=== PATIENT | female | born 1925 | race Caucasian/White ===

== ENCOUNTER → 2016-12-03 18:47 | Outpatient (CLI) | payer MEDICARE ==
[~2016-12-03 18:47] MED LIST: ASCORBIC ACID500 MG PO; LEVOXYL100 MCG PO; NORVASC2.5 MG PO; NORVASC5 MG PO; OXYBUTYNIN CHLOR5 MG PO; VITAMIN A10000 UNIT PO; VITAMIN B COMPL1 TAB PO; VITAMIN D31000 UNIT PO; VITAMIN E100 UNIT PO
[2016-12-10 11:57] VITALS: BMI 23.4
== END | disposition home or self-care (01) ==
LOC: D.LABREF 18:47
DX: R50.9 Fever, unspecified (principal)

== ENCOUNTER 2016-12-09 13:27 | Outpatient (CLI) | payer MEDICARE ==
[~2016-12-09] VITALS: Ht 167.6 cm; Wt 67.3 kg
[2016-12-09 15:26] VITALS: BP 143/75; Ht 167.6 cm; Wt 67.3 kg
[2016-12-09] MEDS ORDERED: OXYBUTYNIN CHLOR5 MG PO ×2 (15:30)
[2016-12-09] MEDS ORDERED: NORVASC5 MG PO (15:31)
--- NOTE | 2016-12-09 16:31 | NUR ---
1600-RADIOLOGIST CONFIRMS PROPER PLACEMENT OF PICC. FRIEND NOTIFIED FOR TRANSPORTATION. 1620-LEFT WITH FRIEND, DID NOT SIGN HER DISCHARGE PAPER.
[2016-12-10] MEDS ORDERED: NORVASC2.5 MG PO (04:09)
[2016-12-10] MEDS ORDERED: LEVOXYL100 MCG PO (04:13)
[2016-12-10] MEDS ORDERED: VITAMIN A10000 UNIT PO (04:14)
[2016-12-10] MEDS ORDERED: VITAMIN B COMPL1 TAB PO (04:14)
[2016-12-10] MEDS ORDERED: VITAMIN E100 UNIT PO (04:15)
[2016-12-10] MEDS ORDERED: ASCORBIC ACID500 MG PO (04:15)
[2016-12-10] MEDS ORDERED: VITAMIN D31000 UNIT PO (04:15)
== END 2016-12-09 16:20 | disposition home or self-care (01) ==
LOC: D.OPS 13:27
DX: N39.0 Urinary tract infection, site not specified (principal)

== ENCOUNTER 2016-12-09 22:15 | Inpatient (IN) | payer MEDICARE ==
[~2016-12-09] VITALS: Ht 167.6 cm; Wt 65.8 kg
[~2016-12-09 22:15] MED LIST changes: -ASCORBIC ACID500 MG PO; -LEVOXYL100 MCG PO; -NORVASC2.5 MG PO; -VITAMIN A10000 UNIT PO; -VITAMIN B COMPL1 TAB PO; -VITAMIN D31000 UNIT PO; -VITAMIN E100 UNIT PO
[2016-12-09 23:22] LABS: BASOPHILS 0.2 % (0.0-2.0); EOSINOPHILS 0.2 % (0-7); HEMATOCRIT 38.8 % (36.0-48.0); HEMOGLOBIN 12.9 g/dL (12-16); IMMATURE GRANULOCYTES 0.5 % (0-5); LYMPHOCYTES 11.7 % (15-50); MCH 29.6 pg (26.0-34.0); MCHC 33.2 g/dL (31.0-37.0); MEAN PLATELET VOLUME 9.1 fL (7.4-10.4); MONOCYTES 8.3 % (2-11); NEUTROPHILS 79.1 % (40-80); PLATELET COUNT 376 10x3/uL (130-400); RBC 4.36 10x6/uL (4.00-5.40); RDW 13.7 % (11.5-14.5); WBC 12.6 10x3/uL (4.8-10.8)
[2016-12-09 23:27] LABS: APPEARANCE CLEAR (CLEAR); BILIRUBIN NEGATIVE (NEGATIVE); COLOR YELLOW (YELLOW); GLUCOSE NEGATIVE (NEGATIVE); KETONE NEGATIVE (NEGATIVE); LEUKOCYTE ESTERASE NEGATIVE (NEGATIVE); NITRITE NEGATIVE (NEGATIVE); PROTEIN NEGATIVE (NEGATIVE); UROBILINOGEN NORMAL (NORMAL)
[2016-12-09 23:34] LABS: UDS - AMPHET NEGATIVE QUAL (NEGATIVE); UDS - BARB NEGATIVE QUAL (NEGATIVE); UDS - BENZO NEGATIVE QUAL (NEGATIVE); UDS - COCAINE NEGATIVE QUAL (NEGATIVE); UDS - METH NEGATIVE QUAL (NEGATIVE); UDS - OPIATE NEGATIVE QUAL (NEGATIVE); UDS - PCP NEGATIVE QUAL (NEGATIVE); UDS - THC NEGATIVE QUAL (NEGATIVE)
[2016-12-09 23:39] LABS: ALBUMIN 3.4 g/dL (3.4-5.0); BILIRUBIN - TOTAL 0.27 mg/dL (0.2-1.3); CALCIUM 9.9 mg/dL (8.5-10.1); CARBON DIOXIDE 24.9 mmol/L (21.0-32.0); CREATININE - SERUM 1.8 mg/dL (0.6-1.3); POTASSIUM - SERUM 4.9 mmol/L (3.5-5.1)
--- NOTE | 2016-12-10 03:40 | NUR ---
RECIEVED PT FROM ER VIA STRETCHER, ASSESSMENT COMPLETED ALONG WITH HISTORY AND MED REC, NO SS OF ACUTE DISTRESS NOTED, ORIENTED TO ROOM AND CALL LIGHT, DENIES PAIN OR NEEDS AT THIS TIME, SR'S UP, CL IN REACH, WILL MONITOR
[2016-12-10 03:50] VITALS: BP 135/72; BMI 23.4
[2016-12-10] MEDS ORDERED: NORVASC2.5 MG PO (04:09)
[2016-12-10] MEDS ORDERED: LEVOXYL100 MCG PO (04:13)
[2016-12-10] MEDS ORDERED: VITAMIN B COMPL1 TAB PO (04:14)
[2016-12-10] MEDS ORDERED: VITAMIN A10000 UNIT PO (04:14)
[2016-12-10] MEDS ORDERED: VITAMIN D31000 UNIT PO (04:15)
[2016-12-10] MEDS ORDERED: VITAMIN E100 UNIT PO (04:15)
[2016-12-10] MEDS ORDERED: ASCORBIC ACID500 MG PO (04:15)
--- NOTE | 2016-12-10 07:32 | NUR ---
PT ASSESSMENT COMPLETE AWAKE AND ALERT ORINENTED X 3 LUNGS CLEAR BIALTERALLY. HEART RATE REGULAR NOTED TO HAVE "WHOOSHING" SOUND MURMUR. PPP X 4 NO ACUTE DISTRESS NOTED. SIDE RAILS UP X 2 CALL LIGHT IN REACH.
--- NOTE | 2016-12-10 08:00 | NUR ---
PATIENT IN LOW KENNY POSITION RESTING WITH EYES CLOSED. RESPIRATIONS EVEN AND UNLABORED. SIDE RAILS UP X2. BED IN LOW POSITION. CALL LIGHT IN REACH.
[2016-12-10 08:35] VITALS: BP 153/71
--- NOTE | 2016-12-10 10:41 | NUR ---
NO ACUTE DISTRESS NTOED VOICES ALL NEEDS TO STAFF WITH NO DIFFICULTY NOTED CALL LIGHT INREACH SIDE RAILS UP X [address] OF HEAD TODAY.
[2016-12-10 11:57] VITALS: Ht 167.6 cm; Wt 65.8 kg
[2016-12-10 13:05] VITALS: BP 166/79
--- NOTE | 2016-12-10 15:06 | NUR ---
PT AWAKE AND ALERT SITTING UP ON SIDE OF BED WITH NO DISTRESS NTOED VOICES ALL NEEDS TO STAFF CALL LIGHT IN REACH SIDE RAILS UP X 2
--- NOTE | 2016-12-10 15:49 | NUR ---
Patient Name: ANAM PATRCIIA Admission Status: ER Accout number: [id number] Admission Date: 12-10-2016 : 1925 Admission Diagnosis: Attending: MARYCARMEN Current LOS: 1 Anticipated DC Date: 12-13-2016 Planned Disposition: Home Primary Insurance: [facility] Discharge Planning Comments: CM MET WITH PATIENT REGARDING D/C NEEDS AND PLANS. PATIENT STATED SHE LIVES ALONE AND HAS NO STEPS OR STAIRS AT HER HOME. PATIENT STATED SHE IS INDEPENDENT WITH HER CARE AND HAS A WALKER (OUT IN THE [place]) IF NEEDED. PATIENT STATED HER PCP IS DR. CARVAJAL AND PHARMACY IS [facility]. PATIENT DENIED HOME HEALTH OR ANY OTHER NEEDS FOR D/C AT THIS TIME. CM WILL CONTINUE TO FOLLOW PATIENT WITH D/C NEEDS AND PLANS. PCP DR. ALENA CARRINGTON [id number] GILBERT STOLL ([facility]) [phone] LIVES IN [place] Section Chief: Rosamaria Amina Is the patient Alert and Oriented? Yes 0 * How many steps to enter\exit or inside your home? 0 0 * PCP DR. CARVAJAL 0 * Pharmacy [facility] 0 * Preadmission Environment Home Alone 0 * ADLs Independent 0 * Equipment Walker 0 * List name and contact numbers for known caregivers / representatives who currently or will assist patient after discharge: GILBERT STOLL ([facility]) [phone] 0 * Community resources currently utilized None 0 * Additional services required to return to the preadmission environment? Yes 0 * Can the patient safely return to the preadmission environment? Yes 0 * Has this patient been hospitalized within the prior 30 days at any hospital? No 0 Grand Total: 0
[2016-12-10 17:41] VITALS: BP 145/73
--- NOTE | 2016-12-10 19:13 | NUR ---
PATIENT RESTING IN BED, TALKING ON THE PHONE. NO VISIBLE SIGNS OF DISTRESS. BED IN LOWEST POSITION AND CALL LIGHT WITHIN REACH.
[2016-12-10 20:00] VITALS: BP 121/62
[2016-12-11] VITALS: BP 126/54
[2016-12-11 04:00] VITALS: BP 130/62
[2016-12-11 04:35] LABS: BASOPHILS 0.3 % (0.0-2.0); EOSINOPHILS 2.3 % (0-7); HEMATOCRIT 39.2 % (36.0-48.0); HEMOGLOBIN 12.6 g/dL (12-16); IMMATURE GRANULOCYTES 0.3 % (0-5); LYMPHOCYTES 27.5 % (15-50); MCHC 32.1 g/dL (31.0-37.0); MCV 90.3 fL (80.0-100.0); MEAN PLATELET VOLUME 9.4 fL (7.4-10.4); MONOCYTES 11.5 % (2-11); NEUTROPHILS 58.1 % (40-80); PLATELET COUNT 374 10x3/uL (130-400); RBC 4.34 10x6/uL (4.00-5.40); WBC 10.1 10x3/uL (4.8-10.8)
[2016-12-11 05:06] LABS: ALBUMIN 3.1 g/dL (3.4-5.0); ANION GAP 13.1 mmol/L (8-16); BILIRUBIN - TOTAL 0.38 mg/dL (0.2-1.3); C-REACTIVE PROTEIN 0.7 mg/dL (0.0-0.9); CALCIUM 9.2 mg/dL (8.5-10.1); CARBON DIOXIDE 23.5 mmol/L (21.0-32.0); CREATININE - SERUM 1.5 mg/dL (0.6-1.3); MAGNESIUM - SERUM 2.2 mg/dL (1.8-2.4); PHOSPHOROUS 3.2 mg/dL (2.5-4.9); POTASSIUM - SERUM 4.6 mmol/L (3.5-5.1); PROTEIN - SERUM 7.6 g/dL (6.4-8.2)
[2016-12-11 05:55] LABS: ERYTHROCYTE SEDIMENTATION RATE 44 mm/hr (0-42)
[2016-12-11 08:20] VITALS: BP 149/70
[2016-12-11 12:28] VITALS: BP 142/58
[2016-12-11 15:47] VITALS: BP 148/52
--- NOTE | 2016-12-11 19:52 | NUR ---
BROUGHT PATIENT ICE PER HER REQUEST. PATIENT DENIES OTHER NEEDS AT THIS TIME. BED IN LOWEST POSITION AND CALL LIGHT WITHIN REACH. ENCOURAGED PATIENT TO CALL IF SHE HAS OTHER NEEDS.
[2016-12-11 20:00] VITALS: BP 129/55
[2016-12-12] VITALS: BP 157/71
[2016-12-12 04:00] VITALS: BP 144/64
[2016-12-12 04:45] LABS: BASOPHILS 0.6 % (0.0-2.0); EOSINOPHILS 3.2 % (0-7); HEMATOCRIT 34.9 % (36.0-48.0); HEMOGLOBIN 11.3 g/dL (12-16); IMMATURE GRANULOCYTES 0.4 % (0-5); LYMPHOCYTES 32.2 % (15-50); MCHC 32.4 g/dL (31.0-37.0); MCV 89.5 fL (80.0-100.0); MEAN PLATELET VOLUME 9.2 fL (7.4-10.4); MONOCYTES 10.9 % (2-11); NEUTROPHILS 52.7 % (40-80); PLATELET COUNT 360 10x3/uL (130-400); WBC 9.5 10x3/uL (4.8-10.8)
[2016-12-12 05:03] LABS: ALBUMIN 2.7 g/dL (3.4-5.0); ANION GAP 15.7 mmol/L (8-16); BILIRUBIN - TOTAL 0.25 mg/dL (0.2-1.3); CALCIUM 8.4 mg/dL (8.5-10.1); CARBON DIOXIDE 19.4 mmol/L (21.0-32.0); POTASSIUM - SERUM 4.1 mmol/L (3.5-5.1); PROTEIN - SERUM 6.8 g/dL (6.4-8.2)
[2016-12-12 05:06] LABS: CREATININE - SERUM 1.1 mg/dL (0.6-1.3)
--- NOTE | 2016-12-12 08:03 | NUR ---
PT ASSESSMENT AWAKE AND ALERT ORIENTED X 3 LUNGS CLAER BILAT HAS NOTED MURMUR WHOOSHING SOUND. BSA X 4 QUADS. MOBILE PER SELF UP AD CAMERON. DENEIS PAIN OR DISCOMFORT OBEYS ALL COMMANDS. CALL LIGHT IN REACH SIDE RAILS UP X 2
[2016-12-12 08:15] VITALS: BP 144/91
--- NOTE | 2016-12-12 09:00 | NUR ---
PATIENT IS AWAKE, ALERT AND ORIENTED X'S 4. RESPIRATIONS ARE EVEN AND UNLABORED ON ROOM AIR. NO SIGNS OF DISTRESS NOTED. PATIENT DENIES NEEDS.
--- NOTE | 2016-12-12 12:23 | NUR ---
NUTRITION MONITORING & EVAL PT TOLERATING REG DIET. 75% INTAKE BREAKFAST. CURRENTLY EATING LUNCH. WILL CONTINUE TO HONOR FOOD PREFERENCES, MONITOR PT PROGRESS. RD FOLLOWING
--- NOTE | 2016-12-12 12:23 | NUR ---
PT PULLED PIV OUT WILL RESITE PER ORDER
[2016-12-12 12:31] VITALS: BP 154/81
--- NOTE | 2016-12-12 13:00 | NUR ---
PIV RESITED TO RIGHT WRIST 20 GA X 1 STICK. TOLERATED WELL.
[2016-12-12 16:02] VITALS: BP 139/80
--- NOTE | 2016-12-12 18:09 | NUR ---
PT SON AT BEDSIDE VISITING. NO DISTRESS NOTED VOICES ALL NEEDS TO STAFF
--- NOTE | 2016-12-12 19:30 | NUR ---
PT RECEIVED LAYING IN BED WATCHING TELEVISION. PT ALERT AND ORIENTED X3. BREATH SOUNDS CLEAR BILATERALLY. RESPIRATIONS ARE EVEN AND UNLABORED. BOWEL SOUNDS ACTIVE X4. ABD SOFT AND NONTENDER UPON PALPATION. HAND HAIRSPRING STUDDER EQUAL. PT IS UP AD CAMERON. IV NOTED TO RIGHT WRIST, NS @ 75, NOTED TO BE PATENT. PT DENIES PAIN AT THIS TIME. CALL LIGHT AND H20 IN REACH. SIDE RAILS UP X2. BED IN LOW POSITION.
[2016-12-12 20:00] VITALS: BP 126/59
--- NOTE | 2016-12-12 21:30 | NUR ---
PT UP IN BED WATCHING TELEVISION. RESPIRATIONS ARE EVEN AND UNLABORED. NO S/S OF DISTRESS NOTED. PT DENIES PAIN OR NEEDS AT THIS TIME. CALL LIGHT AND H2O IN REACH. SIDE RAILS UP X2. BED IN LOW POSITION.
--- NOTE | 2016-12-12 23:30 | NUR ---
PT RESTING IN BED WITH EYES CLOSED. NO S/S OF DISTRESS NOTED. RESPIRATIONS EVEN AND UNLABORED. PT AROUSES TO VERBAL STIMULI. DENIES PAIN OR NEEDS AT THIS TIME. CALL LIGHT AND H2O IN PT REACH. SIDE RAILS UP X2. BED IN LOW POSITION.
[2016-12-13] VITALS: BP 131/64
--- NOTE | 2016-12-13 01:30 | NUR ---
PT RESTING IN BED WITH EYES CLOSED. NO S/S OF DISTRESS NOTED. RESP EVEN AND UNLABORED. CALL LIGHT AND H2O IN PT REACH.
--- NOTE | 2016-12-13 03:30 | NUR ---
PT RESTING IN BED WITH EYES CLOSED. NO S/S OF DISTRESS NOTED. RESPIRATIONS EVEN AND UNLABORED. ABLE TO VOICE NEEDS, NO COMPLAINTS OR NEEDS VOICED AT THIS TIME. CALL LIGHT AND H2O IN PT REACH. SIDE RAILS UP X2. BED IN LOW POSITION.
[2016-12-13 04:00] VITALS: BP 126/71
--- NOTE | 2016-12-13 04:00 | NUR ---
PATIENT SLEEPING WITH NO DISTRESS NOTED. AGREE WITH VP DESIGN ASSESSMENT.
[2016-12-13 04:22] LABS: BASOPHILS 0.7 % (0.0-2.0); EOSINOPHILS 5.2 % (0-7); HEMATOCRIT 35.8 % (36.0-48.0); HEMOGLOBIN 11.7 g/dL (12-16); IMMATURE GRANULOCYTES 0.5 % (0-5); LYMPHOCYTES 28.3 % (15-50); MCHC 32.7 g/dL (31.0-37.0); MCV 88.8 fL (80.0-100.0); MONOCYTES 11.8 % (2-11); NEUTROPHILS 53.5 % (40-80); PLATELET COUNT 334 10x3/uL (130-400); RBC 4.03 10x6/uL (4.00-5.40); RDW 13.7 % (11.5-14.5); WBC 8.3 10x3/uL (4.8-10.8)
[2016-12-13 04:46] LABS: ALBUMIN 2.7 g/dL (3.4-5.0); ANION GAP 13.9 mmol/L (8-16); BILIRUBIN - TOTAL 0.22 mg/dL (0.2-1.3); CALCIUM 8.2 mg/dL (8.5-10.1); CARBON DIOXIDE 20.8 mmol/L (21.0-32.0); MAGNESIUM - SERUM 1.5 mg/dL (1.8-2.4); POTASSIUM - SERUM 3.7 mmol/L (3.5-5.1); PROTEIN - SERUM 6.8 g/dL (6.4-8.2)
--- NOTE | 2016-12-13 05:30 | NUR ---
PT RESTING IN BED WITH EYES CLOSED. NO S/S OF DISTRESS NOTED. RESP EVEN AND UNLABORED. PT ABLE TO VOICE NEEDS, NO COMPLAINTS OR NEEDS VOICED AT THIS TIME. CALL LIGHT AND H2O IN PT REACH. SIDE RAILS UP X2. BED IN LOW POSITION.
[2016-12-13 08:09] VITALS: BP 180/70
[2016-12-13 12:12] VITALS: BP 116/80
[2016-12-13 15:48] VITALS: BP 114/62
--- NOTE | 2016-12-13 19:30 | NUR ---
PT RECEIVED RESTING IN BED WITH EYES CLOSED. PT IS ALERT AND ORIENTED X4. BREATH SOUNDS CLEAR BILATERALLY. RESPIRATIONS EVEN AND UNLABORED. BOWEL SOUNDS ACTIVE IN ALL FOUR QUADRANTS. ABD SOFT AND NONTENDER UPON PALPATION. HAND CUSTOMER BUSINESS MANAGER EQUAL. IV TO RIGHT WRIST, NS @ 75, NOTED TO BE PATENT. NO REDNESS OR EDEMA NOTED TO SITE. IV DRESSING CLEAN, DRY, AND INTACT. PT ABLE TO VOICE NEEDS, DENIES NEEDS OR PAIN AT THIS TIME. CALL LIGHT AND H2O IN PT REACH. SIDE RAILS UP X2. BED IN LOW POSITION.
[2016-12-13 20:00] VITALS: BP 162/72
--- NOTE | 2016-12-13 21:30 | NUR ---
PT SITTING UP IN BED WATCHING TELEVISION. NO S/S OF DISTRESS NOTED. RESPIRATIONS EVEN AND UNLABORED. PT STATES LAST BM WAS YESTERDAY, REQUESTS PRUNE JUICE. PRUNE JUICE GIVEN TO PT PER PT REQUEST. PT DENIES DISCOMFORT. PT DENIES NEEDS OR PAIN AT THIS TIME. CALL LIGHT AND FLUIDS IN PT REACH. SIDE RAILS UP X2. BED IN LOW POSITION.
--- NOTE | 2016-12-13 23:30 | NUR ---
PT RESTING IN BED WITH EYES CLOSED. NO S/S OF DISTRESS NOTED. RESPIRATIONS EVEN AND UNLABORED. PT ABLE TO VOICE NEEDS, NO COMPLAINTS OR NEEDS VOICED AT THIS TIME. CALL LIGHT AND H2O IN PT REACH. BED IN LOW POSITION. SIDE RAILS UP X2.
[2016-12-14] VITALS: BP 161/68
--- NOTE | 2016-12-14 01:30 | NUR ---
PT RESTING IN BED WITH EYES CLOSED. NO S/S OF DISTRESS NOTED. RESPIRATIONS EVEN AND UNLABORED. PT ABLE TO VOICE NEEDS, NO COMPLAINTS OR NEEDS VOICED AT THIS TIME. CALL LIGHT AND H2O IN PT REACH. SIDE RAILS UP X2. BED IN LOW POSITION.
[2016-12-14 04:00] VITALS: BP 120/59
--- NOTE | 2016-12-14 05:30 | NUR ---
IV TO RIGHT WRIST OCCLUDED. UNABLE TO FLUSH IV. IV RESITED TO LEFT WRIST, IV PATENT. PT DENIES PAIN OR NEEDS AT THIS TIME. NO S/S OF DISTRESS NOTED. RESPIRATIONS EVEN AND UNLABORED. CALL LIGHT AND H2O IN PT REACH. SIDE RAILS UP X2. CALL LIGHT AND H2O IN PT REACH.
[2016-12-14 05:40] LABS: BASOPHILS 0.6 % (0.0-2.0); EOSINOPHILS 4.8 % (0-7); HEMATOCRIT 33.5 % (36.0-48.0); HEMOGLOBIN 10.8 g/dL (12-16); IMMATURE GRANULOCYTES 0.8 % (0-5); LYMPHOCYTES 29.2 % (15-50); MCH 28.3 pg (26.0-34.0); MCHC 32.2 g/dL (31.0-37.0); MCV 87.9 fL (80.0-100.0); MEAN PLATELET VOLUME 9.3 fL (7.4-10.4); MONOCYTES 11.8 % (2-11); NEUTROPHILS 52.8 % (40-80); PLATELET COUNT 341 10x3/uL (130-400); RBC 3.81 10x6/uL (4.00-5.40); RDW 13.7 % (11.5-14.5); WBC 8.9 10x3/uL (4.8-10.8)
[2016-12-14 06:07] LABS: CALCIUM 8.4 mg/dL (8.5-10.1); CARBON DIOXIDE 19.7 mmol/L (21.0-32.0); CREATININE - SERUM 0.9 mg/dL (0.6-1.3); POTASSIUM - SERUM 3.7 mmol/L (3.5-5.1)
--- NOTE | 2016-12-14 07:29 | NUR ---
PT. AWAKENS EASILY TO VERBAL STIMULI RESP EVEN AND NONLABORED PT. DENIES NEEDS AT THIS TIME IV IN LEFT WRIST PATENT AND INTACT BED AT LOWEST SETTING AND CALL LIGHT WITHIN REACH WILL CONTINUE TO MONITOR
[2016-12-14 08:30] VITALS: BP 144/63
[2016-12-14 12:54] VITALS: BP 160/75
[2016-12-14 17:00] VITALS: BP 144/69
--- NOTE | 2016-12-14 19:49 | NUR ---
REC'D IN BED AWAKE AND ALERT. RESP EVEN AND UNLABORED WITH NO DISTRESS NOTED. SKIN WARM AND DRY TO TOUCH. NO C/O NOTED OR VOICED AT THIS TIME. CAN MAKE NEEDS AND WANTS KNOWN BUT DENIES ANY C/O AT THIS TIME. WILL CONTINUE TO OBSERVE FOR NEEDS. C/L IN REACH AT BEDSIDE
[2016-12-14 20:44] VITALS: BP 168/78
[2016-12-15 04:00] VITALS: BP 151/66
[2016-12-15 05:35] LABS: BASOPHILS 0.6 % (0.0-2.0); EOSINOPHILS 3.5 % (0-7); HEMATOCRIT 34.2 % (36.0-48.0); IMMATURE GRANULOCYTES 0.7 % (0-5); MCH 28.4 pg (26.0-34.0); MCHC 32.2 g/dL (31.0-37.0); MCV 88.4 fL (80.0-100.0); MEAN PLATELET VOLUME 9.4 fL (7.4-10.4); MONOCYTES 13.1 % (2-11); NEUTROPHILS 58.1 % (40-80); PLATELET COUNT 352 10x3/uL (130-400); RBC 3.87 10x6/uL (4.00-5.40); RDW 13.8 % (11.5-14.5); WBC 8.4 10x3/uL (4.8-10.8)
[2016-12-15 05:46] LABS: ANION GAP 13.3 mmol/L (8-16); CALCIUM 8.3 mg/dL (8.5-10.1); CREATININE - SERUM 0.9 mg/dL (0.6-1.3); POTASSIUM - SERUM 3.3 mmol/L (3.5-5.1)
--- NOTE | 2016-12-15 07:35 | NUR ---
AWAKE AND ALERT, SITTING AT EDGE OF THE BED AT THIS TIME. VOICES THAT SHE HAD NOT GOTTEN MUCH SLEEP LAST NIGHT HER IV PUMP HAD ALARMED MOST OF THE NIGHT. IV TO LEFT WRIST SALINE LOCKED AT PT'S REQUEST. DENIES FURTHER NEEDS AT THIS TIME. CALL LIGHT IN REACH AND BED IN LOWEST POSITION WITH WHEELS LOCKED. CALL LIGHT IN REACH, WILL CONTINUE WITH PLAN OF CARE.
[2016-12-15 07:57] VITALS: BP 150/78
--- NOTE | 2016-12-15 10:25 | NUR ---
SCHEDULED MEDICATIONS ADMINISTERED AT THIS TIME WELL PRN ZOFRAN FOR NAUSEA AND MILK OF MAGNESIA FOR CONSTIPATION. ASSESSMENT PERFORMED PER FLOWSHEET. PT DENIES FURTHER NEEDS AT THIS TIME. CALL LIGHT IN REACH. WILL CONTINUE WITH PLAN OF CARE.
[2016-12-15 12:12] VITALS: BP 150/71
--- NOTE | 2016-12-15 13:23 | NUR ---
SCHEDULED ANTIBIOTIC ADMINISTERED AT THIS TIME. PT HAS VISITORS AT BEDSIDE. DENIES NEEDS AT THIS TIME. CALL LIGHT IN REACH, WILL CONTINUE WITH PLAN OF CARE.
[2016-12-15 15:38] VITALS: BP 147/66
--- NOTE | 2016-12-15 16:20 | NUR ---
PRN MILK OF MAGNESIA PROVIDED TO PT FOR CONSTIPATION AT THIS TIME. DENIES FURTHER NEEDS. WILL CONTINUE WITH PLAN OF CARE.
[2016-12-15 20:00] VITALS: BP 143/61
--- NOTE | 2016-12-15 20:00 | NUR ---
REC'D SITTING IN SIDE OF BED AWAKE AND ALERT. RESP EVEN AND UNLABORED WITH NO DISTRESS NOTED. CAN EXPRESS NEEDS AND WANTS. NO C/O NOTED OF VOICED. ASSESSMENT COMPLETED. C/L IN REACH AT BEDSIDE.
[2016-12-16] VITALS: BP 138/60
[2016-12-16 04:00] VITALS: BP 134/59
--- NOTE | 2016-12-16 04:00 | NUR ---
RESTING WELL AT THIS TIME. NO DISTRESS NOTED WILL CONTNUE TO OBSERVE. C/L IN REACH AT BEDSIDE.
--- NOTE | 2016-12-16 04:46 | NUR ---
MILK BOTTLER AT BEDSIDE. PATIENT DENIES NEEDS AT THIS TIME. BED IN LOWEST POSITION AND CALL LIGHT WITHIN REACH.
[2016-12-16 05:01] LABS: BASOPHILS 0.6 % (0.0-2.0); EOSINOPHILS 3.6 % (0-7); HEMATOCRIT 33.9 % (36.0-48.0); HEMOGLOBIN 11.3 g/dL (12-16); IMMATURE GRANULOCYTES 0.6 % (0-5); LYMPHOCYTES 23.5 % (15-50); MCH 29.3 pg (26.0-34.0); MCHC 33.3 g/dL (31.0-37.0); MCV 87.8 fL (80.0-100.0); MEAN PLATELET VOLUME 8.9 fL (7.4-10.4); MONOCYTES 13.5 % (2-11); NEUTROPHILS 58.2 % (40-80); PLATELET COUNT 322 10x3/uL (130-400); RBC 3.86 10x6/uL (4.00-5.40); RDW 13.9 % (11.5-14.5); WBC 8.4 10x3/uL (4.8-10.8)
[2016-12-16 05:12] LABS: ANION GAP 10.3 mmol/L (8-16); CALCIUM 8.5 mg/dL (8.5-10.1); CREATININE - SERUM 0.9 mg/dL (0.6-1.3); POTASSIUM - SERUM 4.1 mmol/L (3.5-5.1)
[2016-12-16 05:21] LABS: CARBON DIOXIDE 24.8 mmol/L (21.0-32.0)
--- NOTE | 2016-12-16 07:40 | NUR ---
SLEEPING AT THIS TIME. RESPIRATIONS EVEN AND NON LABORED. CALL LIGHT IN REACH, BED IN LOWEST POSITION WITH WEELS LOCKED AND SRX2. WILL CONTINUE WITH PLAN OF CARE.
[2016-12-16 08:07] VITALS: BP 139/58
--- NOTE | 2016-12-16 08:32 | NUR ---
SCHEDULED MEDICATIONS ADMINISTERED AT THIS TIME WELL PRN MILK OF MAGNESIA. ASSESSMENT PERFORMED PER FLOWSHEET. CALL LIGHT IN REACH, WILL CONTINUE WITH PLAN OF CARE.
--- NOTE | 2016-12-16 11:30 | NUR ---
SPOKE WITH BARRON ALFARO AT DR CARVAJAL'S OFFICE REGARDING NEED FOR A DIFFERENT TYPE OF STOOL SOFTNER.
--- NOTE | 2016-12-16 12:11 | NUR ---
PRN TYLENOL AND DULCOLAX SUPPOSITORY ADMINISTERED AT THIS TIME. PT C/O HEADACHE AND CONSTIPATION. DENIES FURTHER NEEDS AT THIS TIME. WILL CONTINUE WITH PLAN OF CARE.
[2016-12-16 12:30] VITALS: BP 141/67
--- NOTE | 2016-12-16 13:15 | NUR ---
REFUSING TO ALLOW THE SUPPOSITORY TIME TO WORK. ASKING IF I COULD ASK DOCTOR FOR AN ENEMA. EXPLAINED TO PT I WOULD CALL THE CLINIC AND ASK DR CARVAJAL'S NURSE BARRON ALFARO.
--- NOTE | 2016-12-16 15:09 | NUR ---
PRN ZOFRAN ADMINISTERED FOR NAUSEA WITHOUT EMESIS AT THIS TIME. BOWEL SOUNDS HYPERACTIVE X4 QUADS. PT HAVE SMALL, WATERY BROWN STOOL AT THIS TIME.
--- NOTE | 2016-12-16 15:45 | NUR ---
22G IV SITED TO PATIENT'S RIGHT FOREARM X1 ATTEMPT. IV TO LEFT WRIST LEAKING AROUND INSERTION SITE. PT TOLERATED WITHOUT COMPLAINTS.
[2016-12-16 15:46] VITALS: BP 125/60
--- NOTE | 2016-12-16 16:08 | NUR ---
PERFORMING FLEETS ENEMA AT THIS TIME FOR CONSTIPATION. RESULT IS BROWN LIQUID WITH SMALL AMOUNT OF LOOSE PIECES.
--- NOTE | 2016-12-16 17:30 | NUR ---
PT FEELING COLD AND SHIVERING AT THIS TIME. TEMPERATURE 98.4 AT THIS TIME. PROVIDED PT WITH A WARM BLANKET. FRIEND AT BEDSIDE. CALL LIGHT IN REACH, WILL CONTINUE WITH PLAN OF CARE.
--- NOTE | 2016-12-16 19:20 | NUR ---
ASSESSMENT COMPLETED, NO ACUTE DISTRESS NOTED, VISITOR IN ROOM, PT HAVING FREQUENT LOOSE STOOLS FROM FLEETS ENEMA THAT WAS ADMINISTERED BY DAY SHIFT, NO ACUTE DISTRESS NOTED, DENIES PAIN OR NEEDS AT THIS TIME, SR'S UP, CL IN REACH, WILL MONITOR
[2016-12-16 20:00] VITALS: BP 137/66
--- NOTE | 2016-12-16 20:10 | NUR ---
MEDS GIVEN PER MAR, DONALD WELL, DULCOLAX SUPP HELD DUE TO PT HAVING UNCONTROLLABLE LOOSE STOOLS, DENIES OTHER NEEDS, CL IN REACH
--- NOTE | 2016-12-16 21:40 | NUR ---
RESTING WITH EYES CLOSED, RESP WITH EASE, FALL PRECAUTION IN PLACE, CL IN REACH
--- NOTE | 2016-12-16 23:38 | NUR ---
CONTINUES TO REST WITH EYES CLOSED, NO DISTRESS NOTED, CL IN REACH
[2016-12-17] VITALS: BP 128/60
[2016-12-17 04:00] VITALS: BP 139/66
--- NOTE | 2016-12-17 07:00 | NUR ---
REPORT RECIEVED ASSUMED CARE. PATIENT IN BED WITH IV INTACT. NO COMPLAINTS AT THIS TIME. CALL LIGHT WITHIN REACH.
--- NOTE | 2016-12-17 08:00 | NUR ---
ASSESSMENT COMPLETE VS STABLE. NO COMPLAINTS AT THIS TIME. IV INTACT. CALL LIGHT WITHIN REACH.
[2016-12-17 08:38] VITALS: BP 125/52
--- NOTE | 2016-12-17 11:45 | NUR ---
PATIENT UP TO BR AT THIS TIME. NO PROBLEMS NOTED. CALL LIGHT WITHIN REACH.
[2016-12-17 13:04] VITALS: BP 118/67
--- NOTE | 2016-12-17 13:52 | NUR ---
PATIENT IN BED WITH IV INTACT. NO COMPLAINTS AT THIS TIME. CALL LIGHT WITHIN REACH.
--- NOTE | 2016-12-17 15:21 | NUR ---
Patient Name: ANAM PATRICIA Admission Status: ER Accout number: [id number] Admission Date: 12-10-2016 : 1925 Admission Diagnosis: Attending: MARYCARMEN Current LOS: 1 Anticipated DC Date: 12-13-2016 Planned Disposition: Home Primary Insurance: [facility] Discharge Planning Comments: CM MET WITH PATIENT REGARDING D/C NEEDS AND PLANS. PATIENT STATED SHE LIVES ALONE AND HAS NO STEPS OR STAIRS AT HER HOME. PATIENT STATED SHE IS INDEPENDENT WITH HER CARE AND HAS A WALKER (OUT [place]) IF NEEDED. PATIENT STATED HER PCP IS DR. CARVAJAL AND PHARMACY IS [facility]. CM SPOKE WITH PATIENT RE: HOME HEALTH. PATIENT REQUESTS [facility] (formerly [facility]) THIS IS THE AGENCY HER PREVIOUSLY USED. ELIZABETH SIGNED AND PLACED ON PATIENT'S CHART. REFERRAL FAXED TO [facility]. PATIENT STATES SHE IS ALSO TRYING TO CALL A FRIEND TO SERVE A SITTER "FOR A DAY OR TWO". ADDITIONAL SITTER INFORMATION GIVEN TO PATIENT. CM TO FOLLOW AND ASSIST NEEDED WITH DISCHARGE PLANNING/NEEDS. KATJA RUBIO RN/CM .
--- NOTE | 2016-12-17 16:20 | NUR ---
PATIENT IN BED WITH EYES CLOSED RESTING QUIETLY. NO COMPLAINTS. CALL LIGHT WITHIN REACH.
[2016-12-17 17:07] VITALS: BP 146/64
--- NOTE | 2016-12-17 19:30 | NUR ---
PT LYING IN BED WATCHING TV, ASSESSMENT COMPLETED, NO DISTRESS NOTED, FALL PRECAUTIONS IN PLACE, CL IN REACH, WILL MONITOR
[2016-12-17 20:00] VITALS: BP 139/70
--- NOTE | 2016-12-17 20:14 | NUR ---
MEDS GIVEN PER MAR, PT UP TO RESTROOM, DONALD WELL, REFUSES IV FLUIDS, DENIES PAIN OR NEEDS, CL IN REACH
--- NOTE | 2016-12-17 23:05 | NUR ---
PT UP TO RESTROOM, NO DISTRESS NOTED, DENIES NEEDS, CL IN REACH
[2016-12-18] VITALS: BP 102/72
--- NOTE | 2016-12-18 01:02 | NUR ---
UP TO RESTROOM, NO DISTRESS NOTED, DENIES NEEDS, CL IN REACH
[2016-12-18 04:00] VITALS: BP 140/75
[2016-12-18 04:29] LABS: BASOPHILS 0.2 % (0.0-2.0); EOSINOPHILS 4.1 % (0-7); HEMATOCRIT 33.4 % (36.0-48.0); HEMOGLOBIN 10.7 g/dL (12-16); IMMATURE GRANULOCYTES 0.4 % (0-5); LYMPHOCYTES 15.1 % (15-50); MCH 28.7 pg (26.0-34.0); MCV 89.5 fL (80.0-100.0); MEAN PLATELET VOLUME 9.4 fL (7.4-10.4); MONOCYTES 13.1 % (2-11); NEUTROPHILS 67.1 % (40-80); PLATELET COUNT 331 10x3/uL (130-400); RBC 3.73 10x6/uL (4.00-5.40); RDW 14.2 % (11.5-14.5)
[2016-12-18 04:30] LABS: WBC 12.8 10x3/uL (4.8-10.8)
[2016-12-18 04:51] LABS: ANION GAP 11.4 mmol/L (8-16); CALCIUM 8.8 mg/dL (8.5-10.1); CARBON DIOXIDE 25.8 mmol/L (21.0-32.0); POTASSIUM - SERUM 4.2 mmol/L (3.5-5.1)
--- NOTE | 2016-12-18 07:00 | NUR ---
REPORT RECIEVED ASSUMED CARE. PATIENT IN BED WITH IV INTACT. NO COMPLAINTS AT THIS TIME. CALL LIGHT WITHIN REACH.
[2016-12-18 08:40] VITALS: BP 113/73
--- NOTE | 2016-12-18 09:29 | NUR ---
PATIENT IN BED WITH IV INTACT. NO COMPLAINTS. IV ABX STARTED CALL LIGHT WITHIN REACH.
[2016-12-18 12:43] VITALS: BP 136/55
--- NOTE | 2016-12-18 13:22 | NUR ---
NUTRITION MONITORING & EVAL TOLERATING REG DIET. 100% INTAKE LUNCH. WILL CONTINUE TO PROVIDE DIET, HONOR FOOD PREFERENCES. RD FOLLOWING
[2016-12-18 16:26] VITALS: BP 124/66
--- NOTE | 2016-12-18 18:00 | NUR ---
PATIENT REFUSED ENEMAS AT THIS TIME. UP TO BR. STATED SHE COULDNT WAIT LONG ENOUGH TO GET ENEMA. EXPLAINED TO PATIENT THAT SHE WOULD NEED TO GET THEM STARTED SOON. VERBALIZED UNDERSTANDING. CALL LIGHT WITHIN REACH.
[2016-12-18 19:00] VITALS: BP 122/64
--- NOTE | 2016-12-18 21:50 | NUR ---
PATIENT UA AND CULTURE COLLECTED BY IN AND OUT CATH AND TAKEN TO LAB AT THIS TIME. PATIENT RECIEVING ANTIBIOTICS. EXPLAINED TO PATIENT THAT SHE WOULD NEED ENEMAS WHEN ANTIBIOTIC COMPLETED. VERBALIZED UDNERSTANDING. CALL LIGHT WITHIN REACH.
--- NOTE | 2016-12-18 22:15 | NUR ---
REPORT GIVEN TO DALTON MARINO. EXPLAINED PATIENT WOULD NEED ENEMAS TILL CLEAR. STATED SHE WASNT GOING TO DO THEM. PATIENT IN ROOM WITH IV INTACT. NO COMPLAINTS AT THIS TIME. CALL LIGHT WITHIN REACH.
[2016-12-18 22:21] LABS: APPEARANCE CLEAR (CLEAR); BILIRUBIN NEGATIVE (NEGATIVE); COLOR YELLOW (YELLOW); GLUCOSE NEGATIVE (NEGATIVE); KETONE NEGATIVE (NEGATIVE); LEUKOCYTE ESTERASE NEGATIVE (NEGATIVE); NITRITE NEGATIVE (NEGATIVE); PROTEIN NEGATIVE (NEGATIVE); UROBILINOGEN NORMAL (NORMAL)
--- NOTE | 2016-12-18 23:40 | NUR ---
EYES CLOSED RESPIRAIONS WITH EASE AND UNLABORED. SR UP X2 CALL LIGHT WITHIN REACH.
--- NOTE | 2016-12-19 01:54 | NUR ---
RESTING QUIETLY RESPIRATIONS WITH EASE AND UNLABORED. NO CHANGES IN ASSESSMENT
[2016-12-19 03:52] LABS: BASOPHILS 0.5 % (0.0-2.0); EOSINOPHILS 5.5 % (0-7); HEMATOCRIT 32.2 % (36.0-48.0); HEMOGLOBIN 10.4 g/dL (12-16); IMMATURE GRANULOCYTES 0.6 % (0-5); MCH 28.9 pg (26.0-34.0); MCHC 32.3 g/dL (31.0-37.0); MCV 89.4 fL (80.0-100.0); MONOCYTES 16.5 % (2-11); NEUTROPHILS 60.9 % (40-80); PLATELET COUNT 304 10x3/uL (130-400); RDW 14.1 % (11.5-14.5); WBC 10.2 10x3/uL (4.8-10.8)
[2016-12-19 04:12] LABS: ALBUMIN 2.5 g/dL (3.4-5.0); BILIRUBIN - TOTAL 0.22 mg/dL (0.2-1.3); CALCIUM 8.2 mg/dL (8.5-10.1); CARBON DIOXIDE 25.5 mmol/L (21.0-32.0); CREATININE - SERUM 0.9 mg/dL (0.6-1.3); PROTEIN - SERUM 6.6 g/dL (6.4-8.2)
[2016-12-19 04:38] LABS: POTASSIUM - SERUM 3.5 mmol/L (3.5-5.1)
--- NOTE | 2016-12-19 04:44 | NUR ---
RESTING QUIETLY WITH EYES CLOSED. RESP DEEP EVEN UNLABORED. BED LOW CL IN REACH.
[2016-12-19 08:32] VITALS: BP 122/74
--- NOTE | 2016-12-19 08:46 | NUR ---
AWAKE AND ALERT AT THIS TIME. SCHEDULED MEDICATIONS ADMINISTERED AT THIS TIME. ASSESSMENT PERFORMED AT THIS TIME. CALL LIGHT IN REACH, WILL CONTINUE WITH PLAN OF CARE.
--- NOTE | 2016-12-19 10:30 | NUR ---
SOAP SUDS ENEMA INITIATED AT THIS TIME. PT TOLERATED WITH MINIMAL C/O STOMACH CRAMPING AND PRESSURE IN THE BOTTOM. PT HELD INSTILLED 1,000 ML OF SOAP SUDS FLUID FOR 4 MINUTES BEFORE TRANSFERRING TO [facility]. RESULT WAS MUDDY COLORED LIQUID, BUT NO REAL STOOL SUBSTANCE. WILL CONTINUE WITH SECOND ENEMA D/T ORDER TO ADMINISTER UNTIL PT IS CLEAR.
--- NOTE | 2016-12-19 12:30 | NUR ---
SECOND 1,000 ML SOAP SUDS ENEMA ADMINISTERED AT THIS TIME. PT TOLERATED WITH MILD STOMACH CRAMPING ONLY. ASSISTED TO BEDSIDE COMMODE AND RESULT IS BROWN COLORED WATER WITH SMALL AMOUNT OF STOOL PARTICLES PRESENT. WILL GIVEN PT TIME TO REST AND ADMINISTER A THIRD ENEMA ORDERED TO ADMINISTER UNTIL CLEAR.
--- NOTE | 2016-12-19 12:47 | NUR ---
12/19/2016 12:45 DCP: Discharge Planning Patient Name: ANAM PATRICIA Encounter No: [id number] : 1925 Primary Insurance: [facility] Anticipated DC Date: 12-13-2016 Planned Disposition: Home External Planned Provider: [facility] DCP follow-up note: DC order rec'd. Patient and family in agreement with discharge plan. No changes to plan. Referral faxed and called to Joan @ [facility]. Anticipate dc this afternoon. Nayeli Valenzuela
--- NOTE | 2016-12-19 13:35 | NUR ---
THIRD 1,000 ML SOAP SUDS ENEMA ADMINISTERED AT THIS TIME. RESULT WAS CLEAR WITH SOFT, FORMED STOOL PARTICLES. PT STATES THAT SHE FEELS MUCH BETTER AND IS READY TO D/C HOME.
--- NOTE | 2016-12-19 14:25 | NUR ---
SPOKE WITH NIGHAT, [phone], PER PT AT THIS TIME THIS WILL BE HER RIDE HOME. 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
--- NOTE | 2016-12-19 15:50 | NUR ---
DISCHARGE HOME WITH CAREGIVER AT THIS TIME. DENIES QUESTIONS OR CONCERNS RELATED TO DISCHARGE INSTRUCTIONS.
--- NOTE | 2016-12-31 08:56 | EC ---
PATIENT:ANAM PATRICIA DATE OF SERVICE: 12/09/16 SEX: F MEDICAL RECORD: [id number] DATE OF : [birth year] [facility] AGE OF PATIENT: 89 ADMISSION DATE: 12/10/16 REFERRING PHYSICIAN: INTERPRETING PHYSICIAN: VINCENT PAIGE MD ECHOCARDIOGRAM REPORT ECHO CHARGES 4 ECHO COMPLETE CLINICAL DIAGNOSIS: MURMUR/FATIGUE ECHOCARDIOGRAPHIC MEASUREMENTS (adult normal given) AC root (d.<3.7cm) 2.0 LV Septum d (<1.2 cm> 1.5 Valve Excursion 1.0 LV Septum (systole) 1.9 Left Atria (s.<4.0cm> 4.3 LVPW d(<1.2cm) 1.3 RV (d.<2.3cm) 2.7 LVPW (sytole) 2.1 LV diastole(<5.6CM) 4.9 MV E-F(>70mm/sec) LV systole 3.1 LVOT Diameter 1.6 MV exc.(>10mm) Est.ejection fraction (50-75%) Pericardial Effusion N DOPPLER: LVIT A 83.0 E 63.0 LA RVSP 29.3 LVOT 104 AOP1/2T Asc. Ao 366 RVOT 71.0 RA PA 216 AV Gradient Peak 54.0 AV Mean 26.4 AV Area 0.6 MV Gradient Peak 5.0 MV Mean 1.5 MV Area COMMENTS: Garment Folder: Kris [employer] [place] [employer] Analyst:Caitlyn No TAPE# PACS DATE OF SERVICE: 12/11/2016 Adequate 2D echo, color flow and spectral Doppler and M-Mode. Mild LVH. LV internal dimensions are normal. Wall motion is normal. EF is greater than 55%. Aortic valve is calcified with restriction of leaflet motion. Peak gradient of 54 mmHg, putting this in moderate range. Left atrium is mildly dilated at 4.3 cm. Mitral valve is thickened. Mild MR. Right-sided chambers appear grossly normal. Mild TR by color flow imaging. TRANSINT:[id number] Voice Confirmation ID: [id number] DOCUMENT ID: [id number] ECHOCARDIOGRAM REPORT [id number] ANAM PATRICIA 12/25/2016 Edited to correct date of service, dmm. VINCENT PAIGE MD at 0856 CC: [id number] DICTATION DATE: 12/14/16 0957 CADDY: 12/15/16 0806 DIS IN 12/19/16 [facility] [address] [facility] [address]
== END 2016-12-19 15:50 | disposition home health service (06) | DRG 689 ==
LOC: D.ER 22:15 → D.MS 12-10 01:12
PROVIDERS: Family Medicine; Nurse Practitioner Family; ADMIT Family Medicine
DX: N39.0 Urinary tract infection, site not specified (principal); G93.41 Metabolic encephalopathy; B96.5 Pseudomonas (aeruginosa) (mallei) (pseudomallei) as the cause of diseases classified elsewhere; Z16.23 Resistance to quinolones and fluoroquinolones; E86.0 Dehydration; I10 Essential (primary) hypertension; E03.9 Hypothyroidism, unspecified; R41.0 Disorientation, unspecified; K59.00 Constipation, unspecified; R33.9 Retention of urine, unspecified